=== PATIENT | female | born 2000 | race Caucasian/White ===

== ENCOUNTER 2020-08-26 17:08 | Inpatient (IN) | payer OTHER, SELFPAY ==
[~2020-08-26] VITALS: Ht 152.4 cm; Wt 70.8 kg
[2020-08-26] MEDS ORDERED: CARBOPROST 250 MCG/ML AMP IM PRN (17:50)
[2020-08-26] MEDS ORDERED: LACTATED RINGERS 500 ML IV ONE (17:50)
[2020-08-26] MEDS ORDERED: AMPICILLIN 2,000 MG in NACL 0.9% MINI-BAG PLUS 100 ML IV SCH (17:50)
[2020-08-26] MEDS ORDERED: METHYLERGONOVINE 0.2 MG/ML AMP IM PRN (17:50)
[2020-08-26] MEDS ORDERED: BETAMETH ACET/BETAMETH NA PH 30 MG/5 ML VIAL IM ONE (17:50)
[2020-08-26 18:02] LABS: APPEARANCE,URINE CLEAR (CLEAR); BILIRUBIN,URINE NEGATIVE (NEGATIVE); BLOOD, URINE NEGATIVE (NEGATIVE); COLOR,URINE YELLOW (YELLOW); LEUKOCYTE ESTERASE ,URINE 1+ (NEGATIVE); NITRITE, URINE NEGATIVE (NEGATIVE); UGLUCOSE NEGATIVE (NEGATIVE)
[2020-08-26] MEDS ORDERED: AMPICILLIN 2,000 MG VIAL ONE (18:09)
[2020-08-26 18:13] LABS: RBC,URINE 0-5 /HPF (0-5)
[2020-08-26 18:17] LABS: BASOPHILS % (AUTO) 0.3 % (0.0-2.0); EOSINOPHILS # (AUTO) 0.2 K/uL (0-0.4); EOSINOPHILS % (AUTO) 2.1 % (0.0-4.0); HEMATOCRIT 41.4 % (36-48); HEMOGLOBIN 14.2 g/dL (12.0-16.0); LYMPHOCYTES % (AUTO) 20.9 % (20.5-51.1); MEAN CORPUSCULAR HEMOGLOBIN 31 pg (27-31); MEAN CORPUSCULAR HGB CONC 34 g/dL (33-37); MEAN CORPUSCULAR VOLUME 88.7 fL (80-94); MONOCYTES # (AUTO) 0.7 K/uL (0.8-1.0); MONOCYTES % (AUTO) 7.4 % (1.7-9.3); NEUTROPHILS # (AUTO) 6.5 K/uL (1.8-7.7); NEUTROPHILS % (AUTO) 69.3 % (42.2-75.2); PLATELET COUNT (AUTO) 327 K/uL (140-450); RED BLOOD CELL COUNT(AUTO) 4.67 MIL/uL (4.20-5.40); RED CELL DISTRIBUTION WIDTH 13.7 % (11.6-13.7); WHITE BLOOD COUNT (AUTO) 9.4 K/uL (4.5-11.0)
[2020-08-26 18:24] LABS: ANION GAP 16.6 (8-16); CARBON DIOXIDE 22.2 mmol/L (21-32); CREATININE 0.5 mg/dL (0.6-1.3); POTASSIUM 3.8 mmol/L (3.5-5.1)
[2020-08-26 18:30] LABS: ALBUMIN 2.6 g/dL (3.4-5.0); TOTAL BILIRUBIN 0.3 mg/dL (0.0-1.0)
[2020-08-26] MEDS: LACTATED RINGERS 1,000 ML IV SCH (18:41)
[2020-08-26 20:40] VITALS: BP 120/60
[2020-08-26] MEDS ORDERED: AMPICILLIN 1,000 MG in NACL 0.9% MINI-BAG PLUS 50 ML IV SCH (21:00)
[2020-08-26] MEDS ORDERED: ACETAMINOPHEN 325 MG TAB PO PRN (21:15)
[2020-08-26] MEDS ORDERED: ACETAMINOPHEN 325 MG TAB ONE (21:20)
[2020-08-27] MEDS: LACTATED RINGERS 1,000 ML IV SCH (01:25)
[2020-08-27] MEDS ORDERED: OXYTOCIN 20 UNITS in LACTATED RINGERS 1,000 ML IV SCH (02:50)
[2020-08-27] MEDS ORDERED: MORPHINE SULFATE 5 MG/ML VIAL IVP PRN (03:30)
[2020-08-27] MEDS ORDERED: ONDANSETRON 4 MG/2 ML VIAL IVP PRN (03:30)
[2020-08-27] MEDS ORDERED: MORPHINE SULFATE 10 MG/ML VIAL ONE (03:37)
[2020-08-27] MEDS ORDERED: ONDANSETRON 4 MG/2 ML VIAL ONE (03:37)
[2020-08-27 03:50] VITALS: BP 105/67
[2020-08-27] MEDS ORDERED: OXYTOCIN 20 UNITS/LR PREMIX 1,000 ML IV ONE (05:07)
[2020-08-27] MEDS ORDERED: SIMETHICONE 80 MG TAB.CHEW PO PRN (06:30)
[2020-08-27] MEDS ORDERED: METHYLERGONOVINE 0.2 MG/ML AMP IM PRN (06:30)
[2020-08-27] MEDS ORDERED: DOCUSATE SODIUM 100 MG GELCAP PO PRN (06:30)
[2020-08-27] MEDS ORDERED: OXYTOCIN 10 UNITS/ML VIAL IM PRN (06:30)
[2020-08-27] MEDS ORDERED: BENZOCAINE/MENTHOL 20%-0.5% 60 GM CAN TP PRN (06:30)
[2020-08-27] MEDS ORDERED: bisacodyL 5 MG TABEC PO PRN (06:30)
[2020-08-27] MEDS ORDERED: METHYLERGONOVINE 0.2 MG TAB PO PRN (06:30)
[2020-08-27] MEDS ORDERED: MEASLES, MUMPS, AND RUBELLA 1 VIAL SQVAC ONE ×2 (06:30→20:26)
[2020-08-27] MEDS ORDERED: IBUPROFEN 600 MG TAB PO PRN (06:30)
[2020-08-27] MEDS: IBUPROFEN 800 MG TAB PO PRN ×2 (14:28→23:22)
[2020-08-28 07:29] LABS: HEMATOCRIT 38.6 % (36-48); HEMOGLOBIN 12.9 g/dL (12.0-16.0)
[2020-08-28] MEDS ORDERED: IBUP-2213 PO (09:39)
== END 2020-08-28 10:20 | disposition home or self-care (01) | DRG 560 ==
LOC: MLD 17:08 → MFCC 08-27 07:30
PROVIDERS: ADMIT Obstetrics & Gynecology; ATTEND Obstetrics & Gynecology
PROC: 10E0XZZ Delivery of Products of Conception, External Approach (ICD-10-PCS; principal; 2020-08-26)
PROC: 10907ZC Drainage of Amniotic Fluid, Therapeutic from Products of Conception, Via Natural or Artificial Opening (ICD-10-PCS; 2020-08-26)
PROC: 3E0234Z Introduction of Serum, Toxoid and Vaccine into Muscle, Percutaneous Approach (ICD-10-PCS; 2020-08-26)
DX: O80 Encounter for full-term uncomplicated delivery (principal); Z20.822 Contact with and (suspected) exposure to COVID-19; Z23 Encounter for immunization; Z37.0 Single live birth; Z3A.36 36 weeks gestation of pregnancy
CPT/HCPCS: 36415; 59409; 80053; 81001; 85018; 85025; 86592; 86886; 86900; 86901; 87086; 87653-90; 90707; J0290; J0702; J2270; J2405; J2590; J7120